=== PATIENT | female | born 2000 | race Caucasian/White ===

== ENCOUNTER 2019-05-11 15:06 | Emergency (ER) | payer OTHER ==
[2019-05-11] MEDS ORDERED: methylPREDNISolone ACETATE 80 MG/ML VIAL IM ONE (15:34)
== END 2019-05-11 15:51 | disposition home or self-care (01) ==
LOC: ED 15:06
DX: J02.9 Acute pharyngitis, unspecified (principal)
CPT/HCPCS: 96372; 99284; J1040